=== PATIENT | female | born 1970 | race Caucasian/White ===

== ENCOUNTER 2016-07-03 16:55 | Emergency (ER) | payer MEDICARE | END 2016-07-03 17:13 | disposition home or self-care (01) | LOC: ER 16:55 | DX: J40 Bronchitis, not specified as acute or chronic (principal); R05 Cough; G89.4 Chronic pain syndrome; F17.210 Nicotine dependence, cigarettes, uncomplicated; Z79.899 Other long term (current) drug therapy | CPT/HCPCS: 99282 ==